=== PATIENT | male | born 1965 | race Caucasian/White ===

== ENCOUNTER → 2017-10-24 07:41 | Outpatient (CLI) | payer OTHER, SELFPAY ==
[2017-10-24 08:47] LABS: Alanine Aminotransferase 62 IU/L (21-72); Albumin 4.4 g/dL (3.5-5.0); Albumin Globulin Ratio 1.6 (1.0-2.8); Alkaline Phosphatase 58 U/L (38-126); Aspartate Aminotransferase 44 IU/L (17-59); BUN Creatinine Ratio 14.4 (6-22); Bilirubin Total 0.5 mg/dL (0.2-1.3); Blood Urea Nitrogen 13 mg/dL (9-20); Calcium 9.8 mg/dL (8.4-10.2); Carbon Dioxide 29 mmol/L (22-32); Chloride 102 mmol/L (98-107); Cholesterol 179 mg/dL (140-199); Estimated Glomerular Filt Rate > 60.0 mL/min (>60); Globulin 2.7 g/dL (1.7-4.1); Glucose 97 mg/dL (70-100); HDL Cholesterol 45 mg/dL (40-60); HEMOLYSIS < 15 (0-50); LDL Cholesterol Calculated 87 mg/dL (<100); Potassium 4.9 mmol/L (3.4-5.1); Sodium 141 mmol/L (137-145); Total Protein 7.1 g/dL (6.3-8.2); Triglycerides 235 mg/dL (35-150)
== END ==
PROVIDERS: Family Provider Family Medicine; PCP Family Medicine; Visit Provider Family Medicine
DX: E78.5 Hyperlipidemia, unspecified (principal)
CPT/HCPCS: 36415; 80053; 80061

== ENCOUNTER 2018-03-14 07:48 | Day surgery (SDC) | payer OTHER, SELFPAY ==
--- NOTE | 2018-03-14 | PATH_ITS ---
[facility] Accession Number: [id number] . 01 Material submitted: . PART A: ASCENDING COLON POLYP PART B: CECUM NEAR APPENDIX POLYP PART C: 45CM POLYP PART D: 20CM POLYP PART E: 15CM POLYP X3 . 02 Diagnosis: A. Ascending Colon, Polyp, Biopsy: Tubular adenoma. . B. Cecum, Near Appendix, Polyp, Biopsy: Serrated lesion, favor sessile serrated adenoma. . C. Colon, 45 cm, Polyp, Biopsy: Sessile serrated adenoma. . D. Colon, 20 cm, Polyp, Biopsy: Tubular adenoma. . E. Colon, 15 cm, Polyps x3, Biopsies: Tubular adenoma in one of three fragments. Hyperplastic polyp in two fragments. MRV/03/17/2018 . 02 Electronically signed: . Gila Rudd MD, Pathologist NPI- [id number] . 01 Gross description: . Received five formalin-filled containers, each labeled with the patient's name: . A. In a container labeled ascending colon polyp, are two 0.2-0.3 cm portions of tissue, entirely submitted in cassette A. B. In a container labeled cecum near appendix polyp, are two 0.1-0.4 cm portions of tissue, entirely submitted in cassette B. C. In a container labeled 45 cm polyp, are four 0.3-0.5 cm portions of tissue, entirely submitted in cassette C. D. In a container labeled 20 cm polyp, are two 0.4-0.5 cm portions of tissue, entirely submitted in cassette D. E. In a container labeled 15 cm polyp, are three 0.4-0.6 cm portions of tissue, entirely submitted in cassette E. ([id number]) /FRR . 02 Pathologist provided ICD-10: D12.2, D12.0, D12.6 . 02 CPT . 670150, 143210, 725629, 371545, 584199 [facility]formed at: [facility] [address] [id number] MD Jaskaran Bhatt MD Phone: [phone] Performed at: 02 [facility] [address] [place] [id number] MD Gila Rudd MD Phone: [phone]
[2018-03-14 08:32] VITALS: BP 136/84; PULSE 60; RESP 16; TEMP 36.3; O2SAT 97; BMI 28.4
[2018-03-14] MEDS: SODIUM CHLORIDE 0.9% 1,000 ML 200 ML IV (09:28)
--- NOTE | 2018-03-14 10:24 | PM.HP.1 ---
History of Present Illness Date Patient Seen: 03/14/18 Time Patient Seen: 10:24 Chief complaint: colonoscopy [id number] Narrative: Patient is a gentleman here for screening colonoscopy. He is 53. This is his 1st exam. No family history of colon cancer. Patient History Medical History ADHD (Chronic ~1973) Cardiac arrhythmia (Chronic ~1995) Diverticular disease (Chronic ~1995) Eczema (Chronic ~1998) Hyperlipidemia (Chronic) Hypertension (Chronic) OCD (obsessive compulsive disorder) (Chronic) Shoulder pain (Chronic ~2009) Surgical History Anesthesia (Inactive) Status post tonsillectomy and adenoidectomy (~1977) Family & Social History Family History: Reviewed 03/14/18 by Rocael Mckeon MD Social History: household members spouse Tobacco & Substance use: Smoking Status Former smoker Meds Home Medications Medication Instructions Recorded Confirmed Type ASPIRIN (#ASPIRIN) 81 mg PO Q DAY #0 09/04/11 03/14/18 History Fish Oil 1,000 mg PO EVERY OTHER DAY #0 09/04/11 03/14/18 History MULTIVITAMIN (#MULTIPLE VITAMINS) 1 cap PO Q DAY #0 09/04/11 03/14/18 History VITAMIN E (#VITAMIN E 15 ML) 15 ml PO Q DAY #0 09/04/11 03/14/18 History UBIDECARENONE (Co Q-10) 150 mg PO QDAY #30 cap 01/05/16 03/14/18 History [vitamin d] See Label Instructions .ROUTE 02/21/17 03/14/18 History .COMPLEX #0 atenolol 50 mg PO BID #180 tab 02/21/17 03/14/18 Rx olmesartan 40 mg tablet 40 mg PO DAILY #90 tab 09/26/17 03/14/18 Rx varicella-zoster glycoE [id number] 0.5 ml IM ONCE #1 each 09/26/17 Rx adj(PF) 50 mcg/0.5 mL IM susp, kit simvastatin 40 mg PO HS #90 tab 02/26/18 03/14/18 Rx amoxicillin 500 mg PO BID 03/14/18 03/14/18 History Allergies Allergy/AdvReac Type Severity Reaction Status Date / Time No Known Drug Allergies Allergy Verified 03/14/18 08:50 Review of Systems Review of Systems All systems reviewed & are unremarkable except as noted in HPI and below Cardiovascular Comments: Has hypertension Exam Vital Signs (past 8 hours): - 03/14/18 08:32 Temperature 97.4 F L Pulse Rate 60 Respiratory Rate 16 Blood Pressure 136/84 Pulse Oximetry 97 Oxygen Delivery Method Room Air Narrative Exam Narrative: Co Operative no apparent distress. Eyes are nonicteric pupils equal round reactive to light. Lungs are clear to auscultation no rales or rhonchi. Heart regular rate and rhythm no murmur gallop. Abdomen is protuberant soft nontender without mass. Alert and oriented x3. Assessment & Plan Plan: Assessment/Plan Narrative: Patient for screening examination due to age. I have discussed the procedure and the rationale with the patient including risks of bleeding, perforation which would necessitate a major operation, failure to find remove all lesions and the potential to tattoo. They appeared to understand and wished to proceed.
--- NOTE | 2018-03-14 10:26 | PM.PREOP ---
Pre-operative Note Interval Note History & Physical reviewed/Exam performed by Physician: Yes Changes to H&P: No ASA Class (for procedural sedation): II
[2018-03-14] MEDS: CEFOTETAN 2 GM/50 ML PIGGYBACK IV (10:30)
[2018-03-14] MEDS: fentaNYL 250 MCG/5 ML INJ IV (11:11)
[2018-03-14] MEDS: MIDAZOLAM 5 MG/5 ML VIAL IV (11:11)
--- NOTE | 2018-03-14 11:16 | P.OP.ENDO_ITS ---
Operative Date/Time/Diagnoses Date of procedure: 03/14/18 Time of procedure: 11:12 Pre-op diagnosis: Screening colonoscopy Post-op diagnosis: other (Multiple polyps. Sigmoid diverticulosis. Mild prostate enlargement.) Procedure & Clinicians Study performed: Colonoscopy with cold biopsy and hot snare polypectomy Same procedure as scheduled: Yes Indications: Screening Surgeon: Rocael Mckeon Procedure Notes SCOAP/Timeout: Performed Procedure in detail: The patient was placed in the left lateral decubitus position and underwent IV sedation directed by the surgeon consisting of fentanyl and Versed. Digital exam was remarkable for an enlarged prostate. There were no dominant masses felt. The scope was inserted and advanced through the rectum into the sigmoid, descending, transverse, and ascending colon. I noted sigmoid diverticuli when I went through that area. The patient had 2 small polyps in the ascending colon near the ileocecal valve. These were biopsied and appeared to be removed. I entered the cecum and biopsied a very small lesion adjacent to the appendiceal opening. This was removed. The scope was brought back and I cauterized the area around 1 of the polyps to manage sure that I had removed it all. The scope was then gradually brought out. The scope was gradually brought out. In addition to the 3 polyps already removed I snared with a hot snare a polyp at 45 cm and retrieved it. At 20 cm there was an additional small polyp which I biopsied and removed. At 15 cm from the anal verge reaching down into the area not far from the anus I removed 3 polyps. One of these was hot snared and the other 2 were with cold biopsy forceps. They are all placed in the same container due to the proximity. The scope ultimately was retroflexed in the rectum. The appearance was normal. The scope was removed and the patient tolerated the procedure well Scope withdrawal time: 14 min Sedation minutes: 38 Findings: diverticulosis (Sigmoid), polyp (Multiple) and other findings ( Enlarged prostate) Specimen(s): other (Polyps) Complications: none Recommendations: Colonscopy in 5 years
--- NOTE | 2018-03-14 11:17 | SUR.PHASEII ---
Direct transfer from Endo room. Pt awake, spacy, stated I feel weird. Denied pain or nausea. VS stable. Spouse brought to bedside.
[2018-03-14 11:20] VITALS: BP 99/64; PULSE 69; RESP 16; TEMP 36.1; O2SAT 95
[2018-03-14 11:43] VITALS: BP 103/73; PULSE 72; TEMP 36.4; O2SAT 95
== END 2018-03-14 11:45 | disposition home or self-care (01) ==
PROVIDERS: PCP Family Medicine; Visit Provider Specialist
PROC: 0DJD8ZZ Inspection of Lower Intestinal Tract, Via Natural or Artificial Opening Endoscopic (ICD-10-PCS; CPT 45378; principal; 2018-03-14 09:45)
DX: Z12.11 Encounter for screening for malignant neoplasm of colon (principal); K57.30 Diverticulosis of large intestine without perforation or abscess without bleeding; N40.0 Benign prostatic hyperplasia without lower urinary tract symptoms; I10 Essential (primary) hypertension; E78.5 Hyperlipidemia, unspecified; F42.9 Obsessive-compulsive disorder, unspecified; I49.9 Cardiac arrhythmia, unspecified; F90.9 Attention-deficit hyperactivity disorder, unspecified type; D12.0 Benign neoplasm of cecum; D12.2 Benign neoplasm of ascending colon; D12.6 Benign neoplasm of colon, unspecified
CPT/HCPCS: 45385; 45380; 99152; 99153; J2250; J3010

== ENCOUNTER 2023-05-02 07:55 | Day surgery (SDC) | payer OTHER, SELFPAY ==
--- NOTE | 2023-05-02 | PATH_ITS ---
[facility] Accession Number: [id number] No. of containers..02 Tissue . 01 Material submitted: . PART A: cecum - CECAL POLYPS X 3 PART B: sigmoid colon - SIGMOID POLYPS . 01 Diagnosis: A. CECAL POLYPS: Tubular adenomas and benign perineurioma (three polyps removed). . B. SIGMOID COLON POLYPS: Tubular adenoma x1. Colonic mucosa with no diagnostic abnormality, consistent with polypoid redundancy x1. MRV 05/06/2023 1326 Local . 01 Electronically signed: . Anam Vick MD, PhD, Pathologist NPI- [id number] . 01 Gross description: . Part A: CECAL POLYPS X 3: Received in formalin is multiple fragment(s) of clark, soft tissue measuring 1.5 x 0.5 x 0.2 cm in aggregate submitted entirely in 1 cassette(s) Part B: SIGMOID POLYPS: Received in formalin is 2 fragment(s) of clark, soft tissue measuring 0.5 x 0.5 x 0.2 cm to 0.4 x 0.3 x 0.1 cm submitted entirely in 1 cassette(s) /AAY 05/03/2023 0425 Local . 01 Pathologist provided ICD-10: D12.0, D12.5 . 01 CPT . 903409, 800689 Specimen Comment: A courtesy copy of this report has been sent to [phone] Performed at: 01 [facility] [address] [place] [address], [place], [place] [id number] MD Jaskaran Bhatt MD Phone: [phone]
[2023-05-02 09:21] VITALS: BMI 29.2
--- NOTE | 2023-05-02 09:50 | P.HP_ITS ---
History of Present Illness History of Present Illness Date Patient Seen: 05/02/23 Time Patient Seen: 09:50 Chief complaint: SD Narrative: Mac is a 58-year-old man who presents for a colonoscopy. He last had a colonoscopy with Dr. Mckeon in 2019 with multiple tubular adenomas removed. No family history of colon cancer. [facility] Medical History ADHD (~1973) Cardiac arrhythmia (~1995) Colon polyps Diverticular disease (~1995) Eczema (~1998) Hyperlipidemia Hypertension Impaired fasting glucose OCD (obsessive compulsive disorder) Shoulder pain (~2009) Tobacco use disorder, continuous (06/30/13) Surgical History Anesthesia Status post tonsillectomy and adenoidectomy (~1977) Family History Father Age: 77 Hypertension High cholesterol Grandfather Hypertension High cholesterol Myocardial infarction Grandfather No problems noted. Social History household members: spouse Smoking Status: Former smoker alcohol intake: current Meds Home Medications and Allergies Home Medications Medication Instructions Recorded Confirmed Type Fish Oil 1,000 mg PO EVERY OTHER DAY ##0 09/04/11 09/20/22 History MULTIVITAMIN (#MULTIPLE VITAMINS) 1 cap PO Q DAY ##0 09/04/11 09/20/22 History VITAMIN E (#VITAMIN E 15 ML) 15 ml PO Q DAY ##0 09/04/11 09/20/22 History UBIDECARENONE (Co Q-10) 150 mg PO QDAY #30 caps 01/05/16 09/20/22 History [vitamin d] See Rx Instructions .Route 02/21/17 09/20/22 History .COMPLEX ##0 atenolol 50 mg tablet 50 mg PO BID #180 tabs 09/20/22 09/20/22 Rx fenofibrate micronized 67 mg 67 mg PO DAILY 09/20/22 09/20/22 History capsule olmesartan 40 mg tablet See Rx Instructions .Route 09/20/22 09/20/22 Rx .COMPLEX #90 tabs simvastatin 40 mg tablet 40 mg PO HS #90 tabs 09/20/22 09/20/22 Rx sodium,potassium,mag sulfates 17.5 See Rx Instructions PO .COMPLEX 03/14/23 Rx gram-3.13 gram-1.6 gram oral soln #354 mL (Suprep Bowel Prep Kit) Allergies Allergy/AdvReac Type Severity Reaction Status Date / Time No Known Drug Allergies Allergy Verified 09/20/22 08:59 Exam Eyes Sclera: sclerae normal Resp Effort & Inspection: normal respiratory effort Neuro General: patient alert and patient awake Psych Affect: normal affect Assessment & Plan Assessment and plan (1) Personal history of colonic polyps: Status: Acute Plan Mac is a 58-year-old man with a personal history of colon polyps. We reviewed the risks and benefits of colonoscopy and he would like to proceed.
--- NOTE | 2023-05-02 10:46 | PM.OP.COLON ---
Operative Date/Time/Diagnoses Date of procedure: 05/02/23 Time of procedure: 10:46 Pre-op diagnosis: Personal history of colon polyps Post-op diagnosis: same Procedure & Clinicians Study performed: Colonoscopy Same procedure as scheduled: Yes Surgeon: Giancarlo Freitas Procedure Notes Procedure in detail: Surgeon: Giancarlo Freitas MD Anesthesia: Singh Gonzalez MD Procedure: The patient was brought to the endoscopy suite, placed in left lateral decubitus position. The patient was connected to monitoring devices. A time-out was performed. Sedation was administered. Once the patient was adequately sedated, a digital rectal exam was performed and was normal. The scope was then inserted and advanced to the cecum where the appendiceal orifice was identified and photographed. The scope was then slowly withdrawn over greater than 6 minutes. The mucosa was thoroughly inspected. There were 4 polyps in the cecum all less than 1 cm and all removed with a cold snare. They were sent together as cecal polyps. There were 2 polyps in the sigmoid colon about 8 mm each and removed with cold snare and sent together. The scope was retroflexed in the rectum. No other abnormalities were seen. The scope was straightened and removed. The patient was awakened and brought to recovery. Scope withdrawal time: 17 minutes Sedation time: 28 minutes EBL: 3 mL Findings: 4 polyps in the cecum and 2 polyps in the sigmoid colon all less than 1 cm Post-procedure Disposition: PACU
[2023-05-02 10:50] VITALS: BP 110/70; PULSE 62; RESP 16; TEMP 36.2; O2SAT 98
[2023-05-02 10:55] VITALS: BP 100/60; PULSE 57; RESP 16; TEMP 36.2; O2SAT 96
[2023-05-02 10:58] VITALS: BP 119/81; PULSE 61; RESP 16; TEMP 36.2; O2SAT 97
[2023-05-02 11:04] VITALS: BP 110/70; PULSE 68; RESP 16; O2SAT 98
--- NOTE | 2023-05-02 11:16 | SUR.PHASEII ---
pt received total of 1000cc's LR. Fluids not charted in preop
== END 2023-05-02 10:50 | disposition home or self-care (01) ==
PROVIDERS: PCP Family Medicine; Referring Provider Surgery; Visit Provider Surgery
PROC: 0DJD8ZZ Inspection of Lower Intestinal Tract, Via Natural or Artificial Opening Endoscopic (ICD-10-PCS; CPT 45378; principal; 2023-05-02 10:15)
DX: Z12.11 Encounter for screening for malignant neoplasm of colon (principal); Z86.010 Personal history of colon polyps; D12.0 Benign neoplasm of cecum; D12.5 Benign neoplasm of sigmoid colon; I10 Essential (primary) hypertension; E78.5 Hyperlipidemia, unspecified; R73.01 Impaired fasting glucose
CPT/HCPCS: 45385; 36415; 80053; 80061; 83036; J2704

== ENCOUNTER → 2023-05-02 08:00 | Outpatient (CLI) | payer OTHER, SELFPAY ==
[2023-05-02 09:19] LABS: Alanine Aminotransferase 45 IU/L (<50); Albumin 4.6 g/dL (3.5-5.0); Albumin Globulin Ratio 1.5 (1.0-2.8); Alkaline Phosphatase 57 U/L (38-126); Aspartate Aminotransferase 43 IU/L (17-59); BUN Creatinine Ratio 14.1 (6-22); Bilirubin Total 0.7 mg/dL (0.2-1.3); Blood Urea Nitrogen 12 mg/dL (9-20); Calcium 9.9 mg/dL (8.4-10.2); Carbon Dioxide 26 mmol/L (22-32); Chloride 104 mmol/L (98-107); Cholesterol 189 mg/dL (140-199); Estimated Glomerular Filt Rate > 60 mL/min (>60); Glucose 101 mg/dL (80-110); HDL Cholesterol 52 mg/dL (40-60); HEMOLYSIS < 15 (0-50); LDL Cholesterol Calculated 83 mg/dL (<100); Potassium 4.2 mmol/L (3.4-5.1); Sodium 142 mmol/L (137-145); Total Protein 7.6 g/dL (6.3-8.2); Triglycerides 269 mg/dL (35-150)
[2023-05-02 09:29] LABS: Hemoglobin A1C% w Est Avg Glu 5.9 % (4.0-6.0)
== END ==
LOC: LAB 08:00
PROVIDERS: PCP Family Medicine; Referring Provider Family Medicine; Visit Provider Family Medicine
DX: I10 Essential (primary) hypertension (principal); E78.5 Hyperlipidemia, unspecified; R73.01 Impaired fasting glucose
CPT/HCPCS: 36415; 80053; 80061; 83036